=== PATIENT | male | born 1990 | race Caucasian/White ===

== ENCOUNTER 2024-09-19 10:17 | Emergency (ER) | payer BC, OTHER ==
[2024-09-19] MEDS ORDERED: Thiamine HCl 200 MG/2 ML VIAL ONE (11:43)
[2024-09-19] MEDS ORDERED: Lorazepam 2 MG/ML VIAL ONE (11:43)
[2024-09-19 12:03] LABS: #Basophils 0.07 10x3/uL (0.0-0.2); #Eosinophils 0.06 10x3/uL (0.0-0.5); #Monocytes 0.53 10x3/uL (0.0-1.1); #Neutrophils 2.16 10x3/uL (1.5-8.4); %Basophils 1.9 % (0.0-2.0); %Eosinophils 1.6 % (0.0-6.0); %Lymphocytes 22.4 % (18.0-47.0); %Monocytes 14.5 % (0.0-10.0); %Neutrophils 59.1 % (40.0-75.0); Hematocrit 42.8 % (38.8-50.0); Hemoglobin 15.5 g/dL (13.5-17.5); Mean Corpuscular HGB CONC 36.2 g/dL (32.0-36.0); Mean Corpuscular Hemoglobin 33.8 pg (27.0-33.0); Mean Corpuscular Volume 93.4 fL (81.2-95.1); Mean Platelet Volume 10.4 fL (7.4-10.4); RBC Distribution Width 12.7 % (11.5-14.5); Red Blood Cell (RBC) Count 4.58 10x6/uL (4.32-5.72); White Blood Cell (WBC) Count 3.7 10x3/uL (3.5-10.5)
[2024-09-19 12:19] LABS: ALT (SGPT) 123 U/L (8-55); AST (SGOT) 231 U/L (5-34); Albumin 3.3 g/dL (3.5-5.0); Alkaline Phosphatase 95 U/L (40-110); Anion Gap 17 mmol/L (10-20); BUN (Urea Nitrogen) 6 mg/dL (8.9-20.6); Calc. Creatinine Clearance 0 mL/min (70-130); Calcium 8.2 mg/dL (7.8-10.44); Carbon Dioxide 25 mmol/L (22-29); Chloride 105 mmol/L (98-107); Estimated GFR 128; Globulin 3.6 g/dL (2.4-3.5); Glucose 101 mg/dL (70-105); Lipase 73 U/L (8-78); Potassium 3.4 mmol/L (3.5-5.1); Protein, Total 6.9 g/dL (6.0-8.3); Sodium 144 mmol/L (136-145)
[2024-09-19 12:20] LABS: Platelet Count 63 10x3/uL (150-450)
[2024-09-19 12:22] LABS: Large Platelets SLIGHT (None Seen); Platelet Adequacy Comment Appears Adequate; RBC Morph Comment Within Normal Limits
[2024-09-19] MEDS ORDERED: chlordiazePOXIDE HCl 25 MG CAP ONE (16:20)
== END 2024-09-19 16:59 | disposition home or self-care (01) ==
LOC: CSHERS 10:17
DX: F10.130 Alcohol abuse with withdrawal, uncomplicated (principal); Y90.8 Blood alcohol level of 240 mg/100 ml or more; Z87.891 Personal history of nicotine dependence
CPT/HCPCS: 80053; 80307; 83690; 85025; 93005; 93010; 96374; 96375; J2060; J3411

== ENCOUNTER 2024-09-22 18:22 | Inpatient (IN) | payer BC ==
[2024-09-22] MEDS ORDERED: Thiamine HCl 200 MG/2 ML VIAL ONE (19:36)
[2024-09-22] MEDS ORDERED: chlordiazePOXIDE HCl 25 MG CAP ONE (19:36)
[2024-09-22] MEDS ORDERED: Lorazepam 2 MG/ML VIAL ONE (19:36)
[2024-09-22] MEDS ORDERED: Magnesium 2 GM/50 ML BAG (IN WATER) ONE (19:37)
[2024-09-22 20:09] LABS: INR-International Normal Ratio 1.3; PTT 26.4 sec (22.0-33.0); Prothrombin Time 13.8 sec (9.5-12.1)
[2024-09-22 20:11] LABS: ALT (SGPT) 81 U/L (8-55); AST (SGOT) 112 U/L (5-34); Albumin 3.2 g/dL (3.5-5.0); Alkaline Phosphatase 111 U/L (40-110); Anion Gap 14 mmol/L (10-20); BUN (Urea Nitrogen) 8 mg/dL (8.9-20.6); Bilirubin, Total 3.5 mg/dL (0.2-1.2); Calc. Creatinine Clearance 0 mL/min (70-130); Calcium 8.7 mg/dL (7.8-10.44); Carbon Dioxide 24 mmol/L (22-29); Chloride 105 mmol/L (98-107); Estimated GFR 124; Globulin 3.2 g/dL (2.4-3.5); Glucose 128 mg/dL (70-105); Potassium 3.5 mmol/L (3.5-5.1); Protein, Total 6.4 g/dL (6.0-8.3); Sodium 139 mmol/L (136-145)
[2024-09-22 20:15] LABS: #Basophils 0.06 10x3/uL (0.0-0.2); #Eosinophils 0.07 10x3/uL (0.0-0.5); #Neutrophils 2.42 10x3/uL (1.5-8.4); %Basophils 1.6 % (0.0-2.0); %Eosinophils 1.8 % (0.0-6.0); %Lymphocytes 17.2 % (18.0-47.0); %Monocytes 15.7 % (0.0-10.0); %Neutrophils 63.2 % (40.0-75.0); Hematocrit 42.4 % (38.8-50.0); Hemoglobin 15.3 g/dL (13.5-17.5); Mean Corpuscular HGB CONC 36.1 g/dL (32.0-36.0); Mean Corpuscular Hemoglobin 33.8 pg (27.0-33.0); Mean Corpuscular Volume 93.8 fL (81.2-95.1); Mean Platelet Volume 11.1 fL (7.4-10.4); Platelet Count 68 10x3/uL (150-450); RBC Distribution Width 12.4 % (11.5-14.5); Red Blood Cell (RBC) Count 4.52 10x6/uL (4.32-5.72); White Blood Cell (WBC) Count 3.8 10x3/uL (3.5-10.5)
[2024-09-22 20:18] LABS: Acetaminophen Less than 10 mcg/mL (Less than 10); Alcohol Less than 10.0 mg/dL (Less than 10); Lipase 75 U/L (8-78); Magnesium 1.3 mg/dL (1.6-2.6); Salicylate Less than 8.0 mg/dL (Less than 8.0)
[2024-09-22 20:24] LABS: Troponin I Less than 0.010 ng/mL (< 0.028)
[2024-09-22 20:55] LABS: RBC Morph Comment Within Normal Limits
[2024-09-22 20:56] LABS: Platelet Adequacy Comment Platelets Decreased
[2024-09-22] MEDS ORDERED: Ondansetron PF 4 MG/2 ML Vial IVP PRN (23:08)
[2024-09-22] MEDS ORDERED: traMADol HCl 50 MG TAB PO PRN (23:08)
[2024-09-22] MEDS ORDERED: Calcium Carbonate 500 MG ChewTAB PO PRN (23:08)
[2024-09-22] MEDS ORDERED: Acetaminophen 325 MG TAB PO PRN (23:08)
[2024-09-22] MEDS ORDERED: Senokot S 8.6-50 MG TAB PO PRN (23:08)
[2024-09-22] MEDS ORDERED: Lorazepam 2 MG/ML VIAL SLOW IVP PRN (23:13)
[2024-09-23 00:18] LABS: Bilirubin 3+ (Negative); Blood, Urine Negative (Negative); Glucose, Urine (Dipstick) Normal (Negative); Ketone, Urine Negative (Negative); Leukocyte Negative (Negative); Nitrite Negative (Negative); Protein, Urine (Dipstick) 30 mg/dl (Neg-Trace); Specific Gravity, Urine 1.015 (1.005-1.030); Urobilinogen 12 mg/dL (Less than 2)
[2024-09-23 00:26] LABS: Clarity Hazy (Clear)
[2024-09-23 00:27] LABS: Amphetamine Detected (NotDetected); Barbiturates Screen Detected (NotDetected); Benzodiazepine Screen Detected (NotDetected); Cocaine Metabolite Screen Not Detected (NotDetected); Methadone Not Detected (NotDetected); Methamphetamine Not Detected (NotDetected); Opiate Screen Not Detected (NotDetected); Oxycodone Screen Not Detected (NotDetected); Phencyclidine (PCP) Not Detected (NotDetected); THC/Cannabinoid Screen Not Detected (NotDetected); Tricyclic Screen Not Detected (NotDetected)
[2024-09-23 00:30] LABS: Bacteria/HPF Rare-Few HPF (None Seen); CAUTI Indications for Culture Pelvic or flank pain; Mucous/LPF 1+ LPF (<2+); RBC/HPF 0-3 HPF (0-3); Squamous Epithelial 0-3 HPF (0-3); WBC/HPF 0-3 HPF (0-3)
[2024-09-23 00:32] LABS: Urine Culture Reflex No No
[2024-09-23] MEDS: Lorazepam 2 MG/ML VIAL SLOW IVP SCH ×2 (01:37→05:08)
[2024-09-23] MEDS: Sodium Chloride 0.9% 500 ML IV SCH (01:42)
[2024-09-23] MEDS: Potassium Chloride 20 MEQ TAB PO SCH ×2 (01:47→05:09)
[2024-09-23] MEDS: D5 1/2 NS w/40 mEq KCL 1,000 ML IV SCH (01:58)
[2024-09-23 02:12] VITALS: BMI 39.0
[2024-09-23] MEDS: traZODone HCl 50 MG TAB PO PRN (02:59)
[2024-09-23 03:29] VITALS: TEMP 98.3
[2024-09-23 03:55] LABS: #Basophils 0.03 10x3/uL (0.0-0.2); #Eosinophils 0.11 10x3/uL (0.0-0.5); #Monocytes 0.54 10x3/uL (0.0-1.1); %Basophils 0.8 % (0.0-2.0); %Eosinophils 2.8 % (0.0-6.0); %Lymphocytes 24.6 % (18.0-47.0); %Monocytes 13.6 % (0.0-10.0); %Neutrophils 57.7 % (40.0-75.0); Hematocrit 45.1 % (38.8-50.0); Hemoglobin 15.5 g/dL (13.5-17.5); Mean Corpuscular HGB CONC 34.4 g/dL (32.0-36.0); Mean Corpuscular Hemoglobin 32.7 pg (27.0-33.0); Mean Corpuscular Volume 95.1 fL (81.2-95.1); RBC Distribution Width 12.4 % (11.5-14.5); Red Blood Cell (RBC) Count 4.74 10x6/uL (4.32-5.72)
[2024-09-23 03:59] LABS: Mean Platelet Volume 11.4 fL (7.4-10.4); Platelet Count 67 10x3/uL (150-450)
[2024-09-23 04:11] LABS: ALT (SGPT) 69 U/L (8-55); AST (SGOT) 100 U/L (5-34); Alkaline Phosphatase 113 U/L (40-110); Anion Gap 12 mmol/L (10-20); BUN (Urea Nitrogen) 8 mg/dL (8.9-20.6); Bilirubin, Total 3.1 mg/dL (0.2-1.2); CK (CPK) 102 U/L (30-200); Calc. Creatinine Clearance 258 mL/min (70-130); Calcium 8.5 mg/dL (7.8-10.44); Carbon Dioxide 25 mmol/L (22-29); Chloride 106 mmol/L (98-107); Estimated GFR 125; Globulin 3.4 g/dL (2.4-3.5); Glucose 109 mg/dL (70-105); Magnesium 1.6 mg/dL (1.6-2.6); Phosphorus 3.3 mg/dL (2.3-4.7); Potassium 3.6 mmol/L (3.5-5.1); Protein, Total 6.4 g/dL (6.0-8.3); Sodium 139 mmol/L (136-145)
[2024-09-23] MEDS: Magnesium 2 GM/50 ML(in water) 2 GM in Premix 1 BAG IVPB SCH (05:09)
[2024-09-23 06:16] VITALS: BP 138/87
[2024-09-23] MEDS: Dexmedetomidine In 0.9 % NaCl 100 ML IVPB SCH (07:54)
[2024-09-23] MEDS: Multivit, Therapeutic 1 TAB PO SCH (09:23)
[2024-09-23] MEDS: Folic Acid 1 MG TAB PO SCH (09:23)
[2024-09-23] MEDS: Pantoprazole 40 MG VIAL IVP SCH (09:23)
[2024-09-23 12:26] LABS: Anion Gap 17 mmol/L (10-20); BUN (Urea Nitrogen) 8 mg/dL (8.9-20.6); CK (CPK) 120 U/L (30-200); Calc. Creatinine Clearance 255 mL/min (70-130); Carbon Dioxide 17 mmol/L (22-29); Chloride 108 mmol/L (98-107); Estimated GFR 125; Glucose 108 mg/dL (70-105); Magnesium 1.8 mg/dL (1.6-2.6); Potassium 4.7 mmol/L (3.5-5.1); Sodium 137 mmol/L (136-145)
== END 2024-09-23 14:18 | disposition short-term general hospital (02) | DRG 897 ==
LOC: CSHERS 18:22 → CSHTELE 23:08
PROVIDERS: ADMIT Student in an Organized Health Care Education/Training Program; ATTEND Internal Medicine
DX: F10.231 Alcohol dependence with withdrawal delirium (principal); G31.2 Degeneration of nervous system due to alcohol; E83.42 Hypomagnesemia; Z79.899 Other long term (current) drug therapy; Z88.8 Allergy status to other drugs, medicaments and biological substances; R56.9 Unspecified convulsions; F41.9 Anxiety disorder, unspecified; F32.A Depression, unspecified; Z98.890 Other specified postprocedural states; D69.6 Thrombocytopenia, unspecified
CPT/HCPCS: 36415; 70450; 80053; 80306; 80307; 81001; 82140; 82550; 83690; 83735; 84100; 84484; 85025; 85610; 85730; 93005; J2060; J3411; J3475; J3480; J7030